=== PATIENT | female | born 1985 | race Caucasian/White ===

== ENCOUNTER 2024-11-21 06:10 | Inpatient (IN) | payer SELFPAY ==
[2024-11-21] MEDS ORDERED: ONDANSETRON 4 MG/2 ML VIAL ONE ×2 (06:23→07:41)
[2024-11-21] MEDS ORDERED: MORPHINE 4 MG/ML SYR ONE (06:24)
[2024-11-21 06:35] LABS: Absolute Lymphocytes (CBC) 2.5 K/uL (0.7-4.9); Hematocrit 43.4 % (36.0-45.0); Hemoglobin 14.6 g/dL (12.0-15.0); MCH 29.3 pg (27.0-35.0); MCHC 33.6 g/dL (32.0-36.0); MCV 87.2 fL (80-100); MPV 8.3 fL (7.6-11.3); Nucleated RBC Absolute Count 0.0 (0-0); Nucleated Red Blood Cells % 0.1 % (0-0); RBC Red Blood Cell Count 4.98 M/uL (3.86-4.86); White Blood Count 6.80 thou/uL (4.3-10.9)
[2024-11-21 06:57] LABS: Anion Gap 9.8 mEq/L (5.0-15.0); BUN Blood Urea Nitrogen 11 mg/dL (7-18); Glucose Level 102 mg/dL (74-106); NT PRO-BNP 55 pg/mL (<125); Potassium 3.8 mEq/L (3.5-5.1)
[2024-11-21 07:01] LABS: Troponin High Sensitivity < 3.0 pg/mL (<58.9)
--- NOTE | 2024-11-21 07:19 | RAD REPORT ---
Procedure: Chest Single View HISTORY: Chest pain COMPARISON: none FINDINGS: The lungs appear clear of acute infiltrate. No significant pleural effusion noted. The heart is normal size. IMPRESSION: No acute abnormality is displayed.
[2024-11-21] MEDS ORDERED: NA CHLORIDE 0.9% 1,000 ML ONE (07:41)
[2024-11-21] MEDS ORDERED: FAMOTIDINE 20 MG/2 ML VIAL IV ONE (07:41)
[2024-11-21] MEDS ORDERED: HYDROMORPHONE HCL 1 MG/ML INJ ONE (07:41)
[2024-11-21 08:18] LABS: Sqamous Epithelial <5 /HPF (None Seen); Urine Micro Reflex YN NO BILL MICROSCOPIC; Urine Yeast (Budding) Trace /HPF (None Seen)
--- NOTE | 2024-11-21 08:44 | RAD REPORT ---
EXAM: Abdominal exam Limited ultrasound CLINICAL HISTORY: Abdominal pain COMPARISON: None FINDINGS: A gallstone is not seen. Gallbladder wall not thickened. Biliary tree normal caliber IMPRESSION: No significant abnormalities displayed
--- NOTE | 2024-11-21 08:44 | RAD REPORT ---
EXAM: CTA of the chest, abdomen and pelvis HISTORY: Chest and abdominal pain COMPARISON: None TECHNIQUE: Multiple contiguous axial images were obtained a CTA of the chest and abdomen with contras t per aortic dissection protocol. Sagittal and coronal 3-D MIP reformats were performed. 100 cc Isovue-370 administered intravenously.Automated exposure control, adjustment of the mA and kV accordi ng to the patient size, and iterative reconstruction. Unless otherwise specified, incidental findings do not require dedicated imaging follow-up. FINDINGS: An aortic dissection not seen. No aortic aneurysm Celiac, SMA and ELLI do not demonstrate a significant abnormality. Renal arteries do not demonstrate a significant abnormality. Lungs are clear Liver, spleen, pancreas, adrenals, kidneys and bladder do not demonstrate a significant abnormality No evidence of diverticulitis. Normal appendix. Small umbilical hernia No adnexal mass IMPRESSION: No evidence of an aortic dissection
--- NOTE | 2024-11-21 09:11 | EDPHYS ---
Physician Documentation [facility] Name: Genesis Miller Age: 39 yrs Sex: Female : 1985 Arrival Date: 11/21/2024 Time: 06:10 Bed 27 Private MD: ED Physician Loco Martinez HPI: 11/21 06:28 This 39 yrs old Female presents to ER via Ambulatory with complaints of Chest Pain > 30 tt7 y/o. 06:28 Patient had episode of chest pain last night which was sharp in nature, pain in the tt7 back of her left shoulder blade that radiated to the anterior chest, associated with left arm numbness, this resolved spontaneously after few minutes, patient then had recurrence of this chest pain this morning which presented similarly but was more intense, patient has past medical history of hypertension. 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 - Infectious Disease History:: Denies. - Social history:: Smoking status: Patient reports the use of cigarette tobacco products, smokes one pack cigarettes per day. Patient/guardian denies using alcohol, street drugs. ROS: 06:27 Constitutional: negative for fever. Cardiovascular: positive for chest pain. tt7 Respiratory: negative for shortness of breath. Abdomen/GI: negative for abdominal pain, nausea, vomiting, diarrhea. MS/Extremity: negative for injury and deformity. Skin: negative for rash. Neuro: negative for focal weakness. Exam: 06:27 Constitutional: vital signs reviewed, well appearing. Head/Face: normocephalic, tt7 atraumatic. Eyes: no conjunctival injection, anicteric sclerae. ENT: mucus membranes moist. Neck: trachea midline, no JVD, no meningismus. Chest/axilla: normal chest wall appearance and motion, nontender, no crepitus. Cardiovascular: regular rate and rhythm, no murmurs, no rubs, no lower extremity edema. Respiratory: normal respiratory effort, no accessory muscle use, lungs CTAB. Abdomen/GI: soft, nondistended, nontender, no guarding or rebound, negative Ayala's sign, no McBurney point tenderness. Back: normal ROM. Skin: warm, dry, intact, normal turgor, normal color, no rash. MS/ Extremity: normal ROM of extremities, no gross deformities, negative homans sign bilaterally. Neuro: alert and oriented with appropriate mental status, normal speech, follows commands, no focal neurologic deficits. Psych: appropriate mood and affect. 09:07 ECG was reviewed by the Attending Physician. daksha Vital Signs: 06:18 BP 144 / 95; Pulse 88; Resp 16; Temp 97.1; Pulse Ox 99% ; Weight 127.01 kg; Height 5 bm8 ft. 4 in. ; Pain 10/10; 06:59 BP 111 / 75; Pulse 71; Resp 16; Pulse Ox 98% on R/A; nh2 07:30 BP 120 / 86; Pulse 69; Resp 15; Pulse Ox 98% on R/A; db 08:24 BP 108 / 74; Pulse 66; Resp 16; Pulse Ox 95% on R/A; db 09:03 BP 103 / 72; Pulse 61; Resp 13; Pulse Ox 96% on R/A; cc6 10:05 BP 125 / 87; Pulse 71; Resp 18; Pulse Ox 97% on R/A; db 06:18 Body Mass Index 48.06 (127.01 kg, 162.56 cm) bm8 06:18 Pain Scale: Adult bm8 MDM: 06:12 Medical Screening Exam initiated tt7 06:21 Differential diagnosis: abnormal EKG, acute myocardial infarction, anxiety, chest wall tt7 pain, costochondritis, gastritis, gastroesophageal reflux disease (GERD), pancreatitis, peptic ulcer disease, pneumonia, pneumothorax, pulmonary embolus. Data reviewed: vital signs, nurses notes, lab test result(s), EKG, radiologic studies. 06:22 ED course: I independently interpreted the patient's EKG performed on 11/21/2024 at 06 tt7 19. On my interpretation, EKG demonstrates normal sinus rhythm, ventricular rate 88 bpm, normal axis, normal QRS interval, normal ST segments, no STEMI. ED course: Vital signs are stable, physical exam reassuring, pulmonary embolism ruled out with PERC rule, standard cardiac evaluation ordered, EKG without acute ischemic findings. 07:01 ED course: Patient care signed out to Dr. Martinez at shift change at 0700 pending tt7 results of remaining laboratory studies, chest x-ray imaging, and reassessment. 11/21 06:14 Order name: Basic Metabolic Panel; Complete Time: 07:02 tt7 11/21 06:14 Order name: CBC with Diff; Complete Time: 07:00 tt7 11/21 06:14 Order name: NT PRO-BNP; Complete Time: 07:02 tt7 11/21 06:14 Order name: Troponin HS; Complete Time: 07:02 tt7 11/21 06:14 Order name: Test, Serum; Complete Time: 07:00 tt7 11/21 06:21 Order name: Lipase; Complete Time: 07:00 tt7 11/21 07:22 Order name: Troponin High Sensitivity; Complete Time: 09:06 daksha 11/21 07:23 Order name: Troponin High Sensitivity; Complete Time: 18:59 daksha 11/21 08:04 Order name: UA W/ Microscopic; Complete Time: 09:06 db 11/21 10:35 Order name: CBC with Automated Diff [facility] 11/21 10:35 Order name: CBC with Automated Diff [facility] 11/21 10:35 Order name: Comprehensive Metabolic Panel [facility] 11/21 10:35 Order name: Comprehensive Metabolic Panel [facility] 11/21 10:37 Order name: Lipid Profile [facility] 11/21 10:37 Order name: Hemoglobin A1c [facility] 11/21 10:37 Order name: Hemoglobin A1c [facility] 11/21 10:38 Order name: Thyroid Stimulating Hormone [facility] 11/21 06:14 Order name: XRAY Chest (1 view); Complete Time: 07:21 tt7 11/21 07:23 Order name: CT Aorta for Dissection; Complete Time: 09:06 [facility] 11/21 07:24 Order name: US Abdomen Limited; Complete Time: 09:06 daksha 11/21 10:36 Order name: Echo with Doppler [facility] 11/21 10:30 Order name: CONS Physician Consult [facility] 11/21 06:14 Order name: Cardiac monitoring; Complete Time: 06:24 tt7 11/21 06:14 Order name: EKG - Nurse/Tech; Complete Time: 06:24 tt7 11/21 06:14 Order name: IV Saline Lock; Complete Time: 06:24 tt7 11/21 06:14 Order name: Labs collected and sent; Complete Time: 06:24 tt7 11/21 06:14 Order name: O2 Per Protocol; Complete Time: 06:24 7 11/21 06:14 Order name: O2 Sat Monitoring; Complete Time: :24 7 11/21 07:22 Order name: EKG - Nurse/Tech; Complete Time: 08:04 [facility] EC:07 Rate is 75 beats/min. Rhythm is regular. QRS [place] is Normal. CO interval is normal. QRS daksha interval is normal. QT interval is normal. No Q waves. T waves are Normal. No ST changes noted. Clinical impression: Normal ECG and No evidence of ischemia. Interpreted by me. Reviewed by me. Administered Medications: 06:29 Drug: morphine IVP or IV 4 mg IVP once over 4 mins Route: IVP; Infused Over: 4 mins; 10 Site: right antecubital; 06:59 Follow up: Response: No adverse reaction [facility] 06:29 Drug: Ondansetron IVP 4 mg IVP once; over 2 minutes Route: IVP; Site: right antecubital;[facility] 06:59 Follow up: Response: No adverse reaction [facility] 07:35 Drug: Ondansetron IVP 4 mg IVP once; over 2 minutes Route: IVP; Site: right antecubital;db 07:35 Drug: NS 0.9% IV 1000 ml IV at 1 bolus Per protocol; to be given as a bolus over 60 db minutes Route: IV; Rate: 1 bolus; Site: right antecubital; 07:35 Drug: Famotidine IVP 20 mg IVP once; dilute with 10 mL 0.9% NaCl; give over 2 minutes db Route: IVP; Site: right antecubital; 07:40 Drug: HYDROmorphone IVP 1 mg IVP once Route: IVP; Site: right antecubital; db 10:00 Drug: Aspirin PO Chewable Tablet 324 mg PO once; 81 mg tablets x 4 Route: PO; db 10:00 Drug: Enoxaparin Sub-Q 100 mg Sub-Q once Route: Sub-Q; Site: right lower abdomen; db Disposition: 07:01 Co-signature as Attending Physician, Konstantin Rollins DO. 7 Disposition Summary: 11/21/24 09:10 Hospitalization Ordered Notes: Hospitalization Status: Observation [facility] Provider: [employer]oo, Naveed daksha Condition: Fair daksha Problem: new daksha Symptoms: have improved daksha Bed/Room Type: Standard daksha Location: [facility] ER HOLD(11/21/24 11:43) bd Room Assignment: ERHOLD-(11/21/24 11:43) bd Diagnosis - Chest pain, unspecified daksha - Dyspnea daksha - Obesity due to excess calories daksha - Essential (primary) hypertension daksha Forms: - Medication Reconciliation Form daksha - SBAR form daksha - Leadership Thank You Letter daksha Signatures: Dispatcher [employer] EDMS Shanika Ragsdale Corey, MD MD cha Benton, Danielle, RN RN db Sylvester Tinajero, RN RN bm8 Ramya Finch RN RN km10 Konstantin Rollins DO DO tt7 Corrections: (The following items were deleted from the chart) 06:14 06:14 BASIC METABOLIC PANEL+C.LAB.BRZ ordered. EDMS EDMS 06:14 06:14 CBC+H.LAB.BRZ ordered. EDMS EDMS 06:14 06:14 PROBNP+C.LAB.BRZ ordered. EDMS EDMS 06:14 06:14 Troponin High Sensitivity+C.LAB.BRZ ordered. EDMS EDMS 06:14 06:14 TEST, SERUM+SC.LAB.BRZ ordered. EDMS EDMS 06:14 06:14 Chest Single View+RAD.RAD.BRZ ordered. EDMS EDMS 06:21 06:20 Allergies: Amoxicillin; bm8 bm8 07:22 07:22 Troponin High Sensitivity+C.LAB.BRZ ordered. EDVA EDVA 11: 09:10 Telemetry/MedSurg (observation) daksha bd 11:43 09:10 daksha bd
--- NOTE | 2024-11-21 09:11 | ER ---
Nurse's Notes [facility] Name: Genesis Miller Age: 39 yrs Sex: Female : 1985 Arrival Date: 11/21/2024 Time: 06:10 Bed 27 Private MD: Diagnosis: Chest pain, unspecified;Dyspnea;Obesity due to excess calories;Essential (primary) hypertension Presentation: 11/21 06:18 Chief complaint: Patient states: I had a pain under my left shoulder blade last night, bm8 it kept getting worse last night, this morning it woke me up around 0400 and the pain is stabbing in the chest radiating to my left jaw behind my ear. Coronavirus screen: Vaccine status: Patient reports receiving the 2nd dose of the covid vaccine. At this time, the client does not indicate any symptoms associated with coronavirus-19. Ebola Screen: Patient negative for fever greater than or equal to 101.5 degrees Fahrenheit, and additional compatible Ebola Virus Disease symptoms Patient denies exposure to infectious person. Patient denies travel to an Ebola-affected area in the 21 days before illness onset. No symptoms or risks identified at this time. Initial Sepsis Screen: Does the patient meet any 2 criteria? No. Patient's initial sepsis screen is negative. Does the patient have a suspected source of infection? No. Patient's initial sepsis screen is negative. Risk Assessment: Do you want to hurt yourself or someone else? Patient reports no desire to harm self or others. Onset of symptoms was November 20, 2024 at 17:00. 06:18 Method Of Arrival: Ambulatory bm8 06:18 Acuity: CEASAR 2 bm8 Triage Assessment: 06:20 General: Appears in no apparent distress. uncomfortable, Behavior is calm, cooperative, bm8 appropriate for age. Pain: Complains of pain in chest Pain radiates to left trapezius, left scapular area and left subscapular area Pain currently is 10 out of 10 on a pain scale. EENT: No deficits noted. No signs and/or symptoms were reported regarding the EENT system. Neuro: No deficits noted. Level of Consciousness is awake, alert, obeys commands, Oriented to person, place, time, situation, Appropriate for age. Cardiovascular: Heart tones S1 S2 present Capillary refill < 3 seconds in bilateral fingers toes Patient's skin is warm and dry. Pulses are all present. Rhythm is sinus rhythm. Respiratory: No deficits noted. Reports pain with respiration Airway is patent Respiratory effort is even, unlabored, Respiratory pattern is regular, symmetrical, Breath sounds are clear bilaterally. the patient has mild shortness of breath. GI: No deficits noted. No signs and/or symptoms were reported involving the gastrointestinal system. : No deficits noted. No signs and/or symptoms were reported regarding the genitourinary system. Derm: No deficits noted. No signs and/or symptoms reported regarding the dermatologic system. Musculoskeletal: No deficits noted. No signs and/or symptoms reported regarding the musculoskeletal system. 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 - Infectious Disease History:: Denies. - Social history:: Smoking status: Patient reports the use of cigarette tobacco products, smokes one pack cigarettes per day. Patient/guardian denies using alcohol, street drugs. Screenin:[address] [facility] ED Fall Risk Assessment (Adult) History of falling in the last 3 months, nh2 including since admission No falls in past 3 months (0 pts) Confusion or Disorientation No (0 pts) Intoxicated or Sedated No (0 pts) Impaired Gait No (0 pts) Mobility Assist Device Used No (0 pt) Altered Elimination No (0 pt) Score/Fall Risk Level 0 - 2 = Low Risk Oriented to surroundings, Maintained a safe environment, Educated pt \T\ family on fall prevention, incl call for assistance when getting out of bed, Assessed \T\ reinforced patient's understanding of fall precautions. Abuse screen: Denies threats or abuse. Denies injuries from another. Nutritional screening: No deficits noted. Tuberculosis screening: No symptoms or risk factors identified. Assessment: 07:38 Reassessment: Patient appears in no apparent distress at this time. Patient and/or db family updated on plan of care and expected duration. Pain level reassessed. Patient is alert, oriented x 3, equal unlabored respirations, skin warm/dry/pink. General: Appears in no apparent distress. uncomfortable, Behavior is calm, cooperative. Pain: Complains of pain in left subscapular area and chest. Neuro: Level of Consciousness is awake, alert, obeys commands, Oriented to person, place, time, situation. Cardiovascular: Reports. Respiratory: Airway is patent Respiratory effort is even, unlabored, Respiratory pattern is regular, symmetrical. 08:00 Reassessment: Patient appears in no apparent distress at this time. Patient and/or db family updated on plan of care and expected duration. Pain level reassessed. Patient is alert, oriented x 3, equal unlabored respirations, skin warm/dry/pink. Patient states symptoms have improved. 09:03 Reassessment: Patient and/or family updated on plan of care and expected duration. Pain cc6 level reassessed. Patient is alert, oriented x 3, equal unlabored respirations, skin warm/dry/pink. 09:45 Reassessment: HOSPITALIST AT PATIENT BEDSIDE. db Vital Signs: 06:18 BP 144 / 95; Pulse 88; Resp 16; Temp 97.1; Pulse Ox 99% ; Weight 127.01 kg; Height 5 bm8 ft. 4 in. ; Pain 10/10; 06:59 BP 111 / 75; Pulse 71; Resp 16; Pulse Ox 98% on R/A; nh2 07:30 BP 120 / 86; Pulse 69; Resp 15; Pulse Ox 98% on R/A; db 08:24 BP 108 / 74; Pulse 66; Resp 16; Pulse Ox 95% on R/A; db 09:03 BP 103 / 72; Pulse 61; Resp 13; Pulse Ox 96% on R/A; cc6 10:05 BP 125 / 87; Pulse 71; Resp 18; Pulse Ox 97% on R/A; db 06:18 Body Mass Index 48.06 (127.01 kg, 162.56 cm) bm8 06:18 Pain Scale: Adult bm8 ED Course: 06:12 Patient arrived in ED. kmf 06:12 Konstantin Rollins DO is Attending Physician. tt7 06:13 Ramya Finch, RUBEN is Primary Nurse. km10 06:20 Triage completed. bm8 06:20 Arm band placed on right wrist. bm8 06:25 Patient has correct armband on for positive identification. Bed in low position. Call nh2 light in reach. Side rails up X 1. Provided Education on: using call light for assistance. Client placed on continuous cardiac and pulse oximetry monitoring. NIBP monitoring applied. drip box tender on. Pulse ox on. NIBP on. 06:25 Inserted saline lock: 18 gauge in right antecubital area, using aseptic technique. nh2 Blood collected. Flushed with 10 mL NS. 06:25 No provider procedures requiring assistance completed. Patient maintains SpO2 nh2 saturation greater than 95% on room air. 07:10 XRAY Chest (1 view) In Process Unspecified. EDMS 07:13 Attending Physician role handed off by Konstantin Rollins DO [facility] 07:13 Loco Martinez MD is Attending Physician. daksha 07:30 Repeat lab(s) drawn. by tx, sent to lab. EKG done, reviewed by Loco Martinez MD. db 07:50 US Abdomen Limited In Process Unspecified. EDMS 08:11 CT Aorta for Dissection In Process Unspecified. EDMS 09:09 Naveed Sepulveda is Hospitalizing Provider. daksha Administered Medications: 06:29 Drug: morphine IVP or IV 4 mg IVP once over 4 mins Route: IVP; Infused Over: 4 mins; km10 Site: right antecubital; 06:59 Follow up: Response: No adverse reaction [facility] 06:29 Drug: Ondansetron IVP 4 mg IVP once; over 2 minutes Route: IVP; Site: right antecubital;km10 06:59 Follow up: Response: No adverse reaction [facility] 07:35 Drug: Ondansetron IVP 4 mg IVP once; over 2 minutes Route: IVP; Site: right antecubital;db 07:35 Drug: NS 0.9% IV 1000 ml IV at 1 bolus Per protocol; to be given as a bolus over 60 db minutes Route: IV; Rate: 1 bolus; Site: right antecubital; 07:35 Drug: Famotidine IVP 20 mg IVP once; dilute with 10 mL 0.9% NaCl; give over 2 minutes db Route: IVP; Site: right antecubital; 07:40 Drug: HYDROmorphone IVP 1 mg IVP once Route: IVP; Site: right antecubital; db 10:00 Drug: Aspirin PO Chewable Tablet 324 mg PO once; 81 mg tablets x 4 Route: PO; db 10:00 Drug: Enoxaparin Sub-Q 100 mg Sub-Q once Route: Sub-Q; Site: right lower abdomen; db Medication: 06:25 VIS not applicable for this client. nh2 Outcome: 09:10 Decision to Hospitalize by Provider. daksha 14:44 Patient left the ED. [email or web address] Signatures: Dispatcher [employer] EDIA Loco Martinez MD MD cha Benton, Danielle RN RN Maranda Allen RN RN mb9 Eleonora Newman [facility] Sylvester Tinajero RN RN bm8 Adrianna Hart RN RN cc6 Everardo Moe Jr, RN RN nh2 Ramya Finch RN RN km10 Konstantin Rollins DO DO tt7 Corrections: (The following items were deleted from the chart) 06:21 06:20 Allergies: Amoxicillin; bm8 bm8
[2024-11-21] MEDS ORDERED: ASPIRIN 81 MG CHEWABLE TABLET ONE (09:55)
[2024-11-21] MEDS ORDERED: ENOXAPARIN 100 MG/ML SYR SQ ONE (09:56)
[2024-11-21] MEDS ORDERED: ONDANSETRON 4 MG/2 ML VIAL IV PRN (10:30)
[2024-11-21] MEDS ORDERED: ACETAMINOPHEN 500 MG TAB PO PRN (10:30)
[2024-11-21 10:59] VITALS: BMI 48.0
[2024-11-21] MEDS: FLU (Fluarix) 25-26 (6MOS UP)/PF 45 MCG/0.5 ML Syringe IM ONE (11:07)
[2024-11-21 13:02] VITALS: BP 113/74; TEMP 97.5
--- NOTE | 2024-11-21 14:08 | P.SSS ---
Patient History Date of Service: 11/21/24 Reason for admission: Chest pain History of Present Illness: Patient is a 39-year-old female with past medical history of hypertension (not currently on antihypertensives) who presented to the ED with chest pain that started on the left side of the chest and radiated to the shoulder blade x 1day. Patient denies any recent injuries and reports seeing some bilateral lower extremity edema intermittently over the last few weeks ED workup included chest x-ray, abd US and CT dissection which were negative for acute findings. Initial troponin <0.3, eos 13.4, urinalysis with blood 2+ and trace of yeast. Patient was admitted for observation and further workup, however once admitted to the floor signed AGAINST MEDICAL ADVICE. Allergies amoxicillin Allergy (Verified 11/21/24 11:09) Hives Home medications list reviewed: Yes (Denied home med) - Past Medical/Surgical History Has patient received pneumonia vaccine in the past: No Diabetic: No -: Hypertension Past Surgical History: Patient denies surgical history - Social History Smoking Status: Current every day smoker Smoking therapy provided: Yes Alcohol use: No CD- Drugs: No Caffeine use: Yes Place of Residence: Home Review of Systems 10-point ROS is otherwise unremarkable Respiratory: SOB with Excertion Cardiovascular: Chest Pain, Edema (in bilateral lower extremities) Physical Examination - Vital Signs Temperature: 97.5 F Blood Pressure: 113/74 Pulse: 60 Respirations: 18 Pulse Ox (%): 96 - Physical Exam General: Alert, In no apparent distress HEENT: Atraumatic, PERRLA, Mucous membr. moist/pink, Sclerae nonicteric Neck: Supple, 2+ carotid pulse no bruit, No LAD, Without JVD or thyroid abnormality Respiratory: Normal air movement, Diminished Cardiovascular: Regular rate/rhythm, Normal S1 S2, Edema (Dependent edema in bilateral lower) Capillary refill: <2 Seconds Gastrointestinal: Normal bowel sounds, No tenderness Musculoskeletal: No tenderness Integumentary: No rashes Neurological: Normal gait, Normal speech, Normal strength at 5/5 x4 extr, Normal tone, Normal affect Lymphatics: No axilla or inguinal lymphadenopathy - Studies Laboratory Data (last 24 hrs) 11/21/24 11/21/24 11/21/24 06:21 06:21 06:21 WBC 6.80 Hgb 14.6 Hct 43.4 Plt Count 235 Sodium 140 Potassium 3.8 BUN 11 Creatinine 0.84 Glucose 102 Lipase 29 Treatment Summary: Chest Pain work up was started with orders: - Repeat Troponin - Echocardiogram - Cardiology consult - TSH, Lipid Panel, A1C Patient left AGAINST MEDICAL ADVICE - Disposition Disposition: AMA-LEFT AGAINST MEDICAL ADVIC Condition: GOOD Diet: Low sodium Activity: No restrictions Critical Care: No Time Spent Managing Pts Care (In Minutes): 42
[2024-11-21 15:02] VITALS: O2SAT 97
[2024-11-21] MEDS ORDERED: HEPARIN 5000 UNIT/ML 1 ML VIAL SQ SCH (17:00)
[2024-11-22] MEDS ORDERED: PANTOPRAZOLE 40MG TABLET PO SCH (07:30)
== END 2024-11-21 14:23 | disposition left against medical advice (07) | DRG 313 ==
LOC: ER 06:10 → ERHOLD 10:27
PROVIDERS: ADMIT Internal Medicine; ATTEND Internal Medicine
DX: R07.9 Chest pain, unspecified (principal); Z68.42 Body mass index [BMI] 45.0-49.9, adult; E66.09 Other obesity due to excess calories; I10 Essential (primary) hypertension; F17.210 Nicotine dependence, cigarettes, uncomplicated; Z88.1 Allergy status to other antibiotic agents; Z53.29 Procedure and treatment not carried out because of patient's decision for other reasons
CPT/HCPCS: 36415; 71045; 71275; 74175; 76705; 80048; 81001; 83690; 83880; 84484; 84703; 85025; 93005; 96372; 96374; 96375; 99285; J1171; J1650; J2405; J7030; Q9967